=== PATIENT | male | born 1975 | race Caucasian/White ===

== ENCOUNTER 2016-09-20 11:02 | Inpatient (IN) | payer MEDICARE, MEDICAID ==
[~2016-09-20] VITALS: Ht 188 cm; Wt 126.3 kg
--- NOTE | ~2016-09-20 | CON ---
PATIENT'S NAME: MARIBELL RONQUILLO [facility] AGE: 41 Y [address] ROOM: [place] [address] LOCATION: GPCU ADMIT DATE: 09/21/2016 Consultation DISCHARGE DATE: 09/23/2016 FAMILY PHYSICIAN: Amrit Dawn MD ATTENDING PHYSICIAN: YSABEL PALACIOS Corrected DOS per dicating physician 10/15/16 AO DATE OF CONSULTATION: 09/20/2016 REFERRING PHYSICIAN: KELLEY PERES This is a [facility] Nephrology Consultation. REASON FOR CONSULTATION: End-stage renal disease, on peritoneal dialysis. HISTORY OF PRESENT ILLNESS: This is a 41-year-old male patient, who is well known to Dr. Ivory in Nephrology, who has a longstanding history of end-stage renal disease secondary to diabetic nephropathy. The patient does have type 1 diabetes and is on subcutaneous insulin at home. The patient reports that he became nauseated and complained of some dry cough. He reportedly forgot his a.m. dose of insulin and went into DKA. He reports having poor appetite over the past few days. Other than this, he continues his peritoneal dialysis with no complications. He was recently transitioned from hemodialysis in August 2016 to peritoneal dialysis. Therefore, due to his history of peritoneal dialysis, Nephrology has been asked to consult on the patient. PAST MEDICAL HISTORY: As listed above, including; 1. Type 1 diabetes, on subcutaneous insulin at home. 2. End-stage renal disease, on peritoneal dialysis. 3. Hypertension. 4. Hypothyroidism. 5. Hyperphosphatemia. 6. Metabolic acidosis. 7. History of medication noncompliance. PAST SURGICAL HISTORY: Includes; 1. PD catheter placement. 2. Left hip surgery. 3. Pelvic surgery. 4. Back surgery. PATIENT'S NAME: MARIBELL RONQUILLO [facility] AGE: 41 Y [address] ROOM: [place] [address] LOCATION: GPCU ADMIT DATE: 09/21/2016 Consultation DISCHARGE DATE: 09/23/2016 FAMILY PHYSICIAN: Amrit Dawn MD ATTENDING PHYSICIAN: YSABEL PALACIOS ALLERGIES: LASIX. HOME MEDICATIONS: Include; 1. Amlodipine 5 mg p.o. daily. 2. Bumex 2 mg p.o. daily. 3. Calcium carbonate 1500 mg p.o. 3 times a day. 4. Coreg 25 mg p.o. twice a day. 5. Insulin NPH regular insulin 70/30, 22 units subcu twice a day. 6. Regular insulin 3 times a day, on sliding scale. 7. Levothyroxine 125 mcg daily. 8. Lisinopril 20 mg p.o. b.i.d. 9. Renvela 2400 mg p.o. 3 times a day. 10. Sodium bicarbonate 650 mg p.o. 3 times a day. SOCIAL HISTORY: The patient denies any alcohol, cigarette, or illegal drug use. He does live at home with his . FAMILY HISTORY: Significant for his father having diabetes. His mother had some mental illness, however, details are not clear. PHYSICAL EXAMINATION: VITAL SIGNS: Blood pressure is 163/77, heart rate 83, respirations 18, temperature is 98.4, and saturations on 96% on 2 L nasal cannula. GENERAL: On exam; this is an alert, oriented, white male, who appears his approximate stated age. He is in no acute distress. HEENT: His head is normocephalic and atraumatic. Eyes: Pupils are equal, round, and reactive to light and accommodation. EOMs are intact. Nose: Midline. Mouth: No gingival bleeding. Oral mucosa is moist and pink. NECK: No JVD. CARDIOVASCULAR: Regular rate and rhythm with no appreciable murmurs, rubs, or thrills. ABDOMEN: Soft, nontender, and nondistended. Bowel sounds are positive. He does have a peritoneal dialysis catheter placed with no inflammation or redness around the stoma. No drainage noted. EXTREMITIES: Show no signs of peripheral edema, clubbing, or cyanosis. NEUROLOGIC: Cranial nerves II through XII are grossly intact. LABORATORY DATA: Hemoglobin 11.5, hematocrit 34.1, WBC 7.0, and platelets are 214. Sodium is 132, potassium 4.7, chloride is 95, CO2 is 19, BUN is 85, creatinine 9.7, and glucose is 285. INR is 1.0, amylase is 29, troponin is less than 0.04, CK PATIENT'S NAME: MARIBELL RONQUILLO [facility] AGE: 41 Y [address] ROOM: [id number] [place], [place] [address] LOCATION: GPCU ADMIT DATE: 09/21/2016 Consultation DISCHARGE DATE: 09/23/2016 FAMILY PHYSICIAN: Amrit Dawn MD ATTENDING PHYSICIAN: YSABEL PALACIOS 122, calcium 7.4. Blood cultures are pending x2. PD fluid cell counts are currently pending. CTA shows; 1. No PE. 2. No pneumonia. 3. Small pleural effusions and a large amount of ascites. 4. Mild anasarca. ASSESSMENT AND PLAN: 1. End-stage renal disease, on peritoneal dialysis. We will obtain the patient's outpatient clinical record and provide peritoneal dialysis accordingly. At this time, Dr. Ivory has recommended the patient be on 1.5% dextrose bags for his regimen. We will monitor his ultrafiltration in the morning. 2. Diabetic ketoacidosis. Per hospitalist. 3. History of hyperphosphatemia. The patient is currently on Renvela. 4. History of metabolic acidosis. The patient is to continue sodium bicarbonate at this time. 5. History of renovascular hypertension. The patient's blood pressures are elevated currently. He is to continue his Prinivil as well as Norvasc at this time. He is to continue his Coreg. We will monitor closely and make further recommendations with the results of his ultrafiltration overnight. 6. History of peripheral edema. Despite the patient's end-stage renal disease diagnosis, he does to continue to make urine. He is to continue his Bumex 2 mg p.o. daily. This patient has been seen and assessed by Dr. Ivory. His care is being conducted in consultation with Dr. Ivory as well as me. We will plan further recommendations as they are forthcoming. BRYCE MENEZES DNP, TUBE WORKER FOR M RAMOS IVORY MD ENS/modl /[id number] Corrected DOS per dicating physician 10/15/16 AO d: 09/21/16 2341 t: 10/20/16 0902, CONSULTATION REPORT
--- NOTE | ~2016-09-20 | DS ---
PATIENT'S NAME: MARIBELL RONQUILLO [facility] AGE: 41 Y [address] ROOM: [id number] [place], [place] [address] LOCATION: GPCU ADMIT DATE: 09/21/2016 Discharge Summary DISCHARGE DATE: 09/23/2016 FAMILY PHYSICIAN: Amrit Dawn MD ATTENDING PHYSICIAN: Santhosh Mendosa PRIMARY DIAGNOSES: 1. Diabetic ketoacidosis without coma. 2. Diabetes type 2 with hyperglycemia. 3. End-stage renal disease, on peritoneal dialysis. 4. Essential hypertension, uncontrolled. 5. Recurrent nausea. PRINCIPAL PROCEDURES: None was done for the patient. LABORATORY DATA: WBC on admission was 7.0, was stable throughout the hospital stay, prior to discharge was H and H on admission were 11.5 and 34.1, prior to discharge were stable at 11.0 and 34.2; platelets were 214, prior to discharge was 205. On admission, creatinine was 10.9, prior to discharge was 8.9; sodium was 125 on admission, prior to discharge was 135; BUN on admission was 104, prior to discharge was 88; glucose on admission on chemistry was 753, prior to discharge was 205; CO2 on admission was 16, prior to discharge was 20; potassium on admission was 5.4, prior to discharge was 4.6. Liver function test was within normal limits. MICROBIOLOGY DATA: Blood culture x2 sets was no growth. RADIOLOGY DATA: Chest x-ray, stable chest, no new acute findings. CTA per PE protocol, no PE, no pneumonia. Small pleural effusion and a large amount of ascites, mild anasarca. HOSPITAL COURSE: For history of present illness, please take a look at the H and P, which was done by Dr. Mendosa. The patient was admitted to the PCU, was managed as a case of diabetic ketoacidosis without coma. He was started on insulin drip as per the protocol, and eventually, the patient was successfully weaned off the insulin drip with episodes of hypoglycemia. He was subsequently restarted on his home dose of mixed insulin; however, his blood sugar did bounce around a little bit from being hypoglycemic into 400s. The patient was basically most times during his hospital stay noncompliant with his care, sometimes not compliant with checking his Accu-Cheks, sometimes noncompliant also with his diet. He requested for an increase in the amount of calorie, which is allowed to take, which resulted in his blood sugar going into the 400. During his hospital stay, he did also complain of some nausea, which was not well controlled with Zofran, however, did get some improvement with Reglan. Also during his stay, Renal consult was called. The patient was PATIENT'S NAME: MARIBELL RONQUILLO [facility] AGE: 41 Y [address] ROOM: [place] [address] LOCATION: GPCU ADMIT DATE: 09/21/2016 Discharge Summary DISCHARGE DATE: 09/23/2016 FAMILY PHYSICIAN: Amrit Dawn MD ATTENDING PHYSICIAN: Santhosh Mendosa continued on his peritoneal dialysis as well and most of the time during his stay was a difficult patient to take care of as he was not really very cooperative with the nursing team with his care. A day prior to his discharge, he refused his telemonitoring leads to be put on, and his blood pressure during his hospital stay was very difficult to control. We did have to increase his Norvasc from 5 mg daily to 10 mg daily without much improvement in blood pressure. He did receive also Bumex IV, which is also bumped up from 2 mg daily to 2 mg IV twice daily. He was ultimately sent home on Bumex 2 mg twice daily without much improvement in his blood pressure control. On the morning of his discharge, he did complain of some more nausea, which was improved with Reglan, and we recommended for the patient that we needed to do a gastric emptying test done to evaluate him for a gastroparesis as his symptom of nausea has been ongoing for a while without anything in our records indicating he has been worked up for gastroparesis in the past. On the day of discharge, his vital signs were stable. His nausea had resolved, and the patient was discharged home. MEDICATIONS ON DISCHARGE: 1. Bumetanide 2 mg p.o. twice daily, dose changed. 2. Calcium carbonate 1500 mg p.o. 3 times daily. 3. Coreg 25 mg p.o. twice daily. 4. Norvasc 10 mg p.o. daily, dose changed. 5. Synthroid 125 mcg p.o. daily before breakfast. 6. Humulin 70/30. 7. Lisinopril 20 mg p.o. twice daily. 8. Renvela 2400 mg p.o. 3 times daily. 9. Sodium bicarb 650 mg p.o. 3 times daily. 10. Zofran 4 mg q.6 hours p.o. p.r.n., new medication. DISCHARGE INSTRUCTIONS: The patient is to have a gastric emptying test done, has been scheduled for tomorrow, September 24, 2016. MD HELLEN HUITRON/maryl /[id number] d: 09/24/16 0304 t: 09/26/16 1415, DISCHARGE SUMMARY
--- NOTE | ~2016-09-20 | ER ---
PATIENT'S NAME: MARIBELL RONQUILLO [facility] AGE: 41 Y [address] ROOM: [place] [address] LOCATION: GPCU ADMIT DATE: 09/20/2016 ER/Outpatient Report DISCHARGE DATE: FAMILY PHYSICIAN: Amrit Dawn MD ATTENDING PHYSICIAN: BASIM MCKEON Time of Arrival: 1102 hours. Time of Evaluation: 1108 hours. CHIEF COMPLAINT: Chest pain. HISTORY OF PRESENT ILLNESS: The patient is a 41-year-old male who presents to the emergency department today with a chief complaint of chest pain. He reports it started earlier this morning. He does have some shortness of breath with it as well. He does have some nausea and just feels achy all over. He denies any diarrhea or constipation. Denies any fevers. The pain is currently 6/10 in severity. It is a pressure. PAST MEDICAL HISTORY: 1. Chronic kidney disease, on peritoneal dialysis. 2. Insulin-dependent diabetes. 3. Hypertension. PAST SURGICAL HISTORY: Left hip, back, and pelvis. SOCIAL HISTORY: The patient denies any tobacco, alcohol, or illicit drug use. ALLERGIES: NO KNOWN DRUG ALLERGIES. MEDICATIONS: Please see list. PRIMARY CARE DOCTOR: Dr. Kwong. REVIEW OF SYSTEMS: All systems are reviewed by myself and are negative with the exception of those discussed in the HPI and past medical history. PHYSICAL EXAMINATION: VITAL SIGNS: Weight 120.6 kg. Blood pressure 195/88, pulse 86, respiratory rate 18, temperature 98.6, and oxygen saturation 99% on 3 L nasal cannula. PATIENT'S NAME: MARIBELL RONQUILLO [facility] AGE: 41 Y [address] ROOM: [address] [address] LOCATION: GPCU ADMIT DATE: 09/20/2016 ER/Outpatient Report DISCHARGE DATE: FAMILY PHYSICIAN: Amrit Dawn MD ATTENDING PHYSICIAN: BASIM MCKEON GENERAL: The patient is a 41-year-old male, who appears older than stated age in mild acute distress. HEENT: Head; normocephalic and atraumatic. Pupils are equal, round, and reactive to light. Oropharynx is mildly dry. NECK: Supple. There is no nuchal rigidity. CARDIOVASCULAR: Regular rate and rhythm. No murmurs, rubs, or gallops. LUNGS: Clear to auscultation bilaterally. ABDOMEN: Soft. Mild diffuse tenderness to palpation. There is no rebound, rigidity, or guarding. Positive bowel sounds. MUSCULOSKELETAL: The patient moves all 4 extremities. SKIN: Warm and dry. LABORATORY DATA AND IMAGING STUDIES: Laboratories and X-rays are obtained. EKG is obtained, is interpreted by myself, and showed sinus rhythm with a rate of 85, left axis deviation, normal interval. No ST elevation or ST depression. No T-wave inversions. Lactate is normal. CBC is normal except for a hemoglobin of 11.5, hematocrit of 34.1. Influenza is negative. Coags are negative. D-dimer is 1.82. Procalcitonin is 0.65. CMP is normal except for a sodium of 125, potassium 5.4, chloride 87, CO2 is 16, BUN 104, creatinine is 10.9, and glucose 753. LFTs are normal. BNP is 22,099. Magnesium is normal. CK is normal. CK-MB is 4.2, troponin is less than 0.04. Venous blood gas; 7.27/41/74/18.8/negative 7.7. Repeat EKG shows sinus rhythm with a rate of 83, normal axis, and normal interval. No ST elevation or ST depression, or T-wave inversions. A CT scan of the chest, PE study was obtained. I have discussed the results with the radiologist, shows no evidence of PE. There were small pleural effusions, no evidence of pneumonia. IMPRESSION: 1. Diabetic ketoacidosis. 2. Fluid overload, on chronic peritoneal dialysis. 3. Poorly controlled hypertension. 4. Critical care time 33 minutes. 5. Initial visit. EMERGENCY DEPARTMENT COURSE: The patient was brought back to the examination room. Seen and evaluated by myself. IV is established. Laboratory analysis and imaging are obtained as described above. The patient's laboratory analysis is returned. The patient is given a liter of normal saline and then started on normal saline at 250 mL per hour. The patient is given 50 mcg of fentanyl for pain. He is given aspirin orally. He is also given 10 units of insulin subcutaneous and started on insulin drip at 3 units per hour. The patient's blood sugars are repeated multiple times here in the emergency department. He continues to read high. I have discussed the case with Dr. Mckeon, who is on-call for the Hospitalist PATIENT'S NAME: MARIBELL RONQUILLO [facility] AGE: 41 Y [address] ROOM: [id number] [place], [place] [address] LOCATION: [facility] ADMIT DATE: 09/20/2016 ER/Outpatient Report DISCHARGE DATE: FAMILY PHYSICIAN: Amrit Dawn MD ATTENDING PHYSICIAN: BASIM MCKEON Service. He does agree to accept the patient for further evaluation, treatment, and management. I have discussed the results with the patient. He is agreeable with the plan. The patient did require cumulative critical care time of 33 minutes, this did include discussion with the patient, talking with the consultants, ordering tests, reviewing tests, as well as close monitoring. The patient in diabetic ketoacidosis, requiring close fluid management and insulin drip. DISPOSITION: The patient is admitted under the care of the Hospitalist Service with Dr. Mckeon in stable condition. DO JAGDISH SETHI/maryl /[id number] d: 09/20/161951 t: 09/22/161720, OUTPATIENT REPORT
--- NOTE | ~2016-09-20 | CON ---
PATIENT'S NAME: MARIBELL RONQUILLO [facility] AGE: 41 Y [address] ROOM: [place] [address] LOCATION: GPCU ADMIT DATE: 09/20/2016 Consultation DISCHARGE DATE: FAMILY PHYSICIAN: Amrit Dawn MD ATTENDING PHYSICIAN: BASIM MCKEON DATE OF CONSULTATION: 09/21/2016 REFERRING PHYSICIAN: Dr. Mckeon. REASON FOR VISIT: Wound Care visit to evaluate and treat lower leg venous stasis dermatitis. HISTORY OF PRESENT ILLNESS: This is a 41-year-old male patient who was admitted to [facility] with diabetic ketoacidosis. He has a history of type 1 diabetes mellitus, hypertension, hypothyroidism, pulmonary embolism, and end-stage renal disease. The patient reports a poor appetite prior to admission. He also mentions forgetting to take his insulin. The patient has a history of pressure ulcers and venous stasis ulcers. He normally wears Jobst compression stockings at home. He reports a good oral intake since he has been admitted to the hospital. He is denying pain. Per the [facility] nurses, he has a tendency to refuse pressure redistribution measures. He denies chest pain. He denies unexplained weight loss. Per H and P, he was noted to have a wound to his left anterior gunn. The patient denies purulent exudate and has been treating it with a gauze bandage at home. He is not sure how long he has had the ulcer. PAST MEDICAL HISTORY: 1. Type 1 diabetes mellitus. 2. End-stage renal disease, on peritoneal dialysis. 3. Essential hypertension. 4. Hypothyroidism. 5. Pulmonary embolism. PAST SURGICAL HISTORY: I and D of left hip, lower back fusion, hardware removal to spine, left hip replacement, fistula placement, and port placement. FAMILY HISTORY: Reviewed and found to be noncontributory to present illness. SOCIAL HISTORY: The patient lives in [place], [place] with his . He denies tobacco or illicit drug use. PATIENT'S NAME: MARIBELL RONQUILLO [facility] AGE: 41 Y [address] ROOM: [place] [address] LOCATION: GPCU ADMIT DATE: 09/20/2016 Consultation DISCHARGE DATE: FAMILY PHYSICIAN: Amrit Dawn MD ATTENDING PHYSICIAN: BASIM MCKEON ALLERGIES: FUROSEMIDE. CURRENT MEDICATIONS: Please refer to the medication administration record. REVIEW OF SYSTEMS: A 10-point review of systems was completed to the best of my ability and all negative except as mentioned above in the HPI. PHYSICAL EXAMINATION: VITAL SIGNS: Temperature 98.4, pulse 83, respirations 18, blood pressure 160/77, and pulse oximetry 98% on 2 L. Height 6 feet 2 inches and weight 122 kg. GENERAL: The patient is alert and orientated x3. Slightly irritable. Appears to minimize his current health situation. HEENT: Head: Normocephalic, atraumatic. Anicteric sclerae. Oral mucosa intact. NECK: Supple. No JVD noted. CARDIOVASCULAR: Regular rate and rhythm. ABDOMEN: Round. No organomegaly from what I can tell. EXTREMITIES. +1 pedal pulses. +1 lower leg edema. Extremities are warm to touch. Long, thick mycotic toenails. SKIN: The patient refused to turn in bed for visualization of his buttocks. He reports no ulcers to the site. To his lower extremities, he has obvious venous stasis changes with hemosiderin staining. He has dry skin flakes noted. No open ulcers noted. Heels intact. LABORATORY DATA: White blood cell count 6.7, hemoglobin 11.9, hematocrit 37.7, platelets 236. Lactate 2.7. Sodium 132, potassium 4.7, chloride 95, bicarb 19, BUN 85, creatinine 9.7, and glucose 285. ASSESSMENT AND PLAN: Again, this is a 41-year-old male patient who was admitted to [facility] with diabetic ketoacidosis. Wound Care was consulted to evaluate and assess lower leg venous stasis dermatitis. 1. Bilateral lower leg venous stasis dermatitis: The patient currently has no open ulcers noted. He noted he had an ulcer open in the past, but was very superficial. It appears that it has closed. I will have nursing apply Aloe [place] b.i.d. to legs. The patient has his compression stockings and I instructed nursing to put them on in the morning and off at bedtime. The patient was instructed to elevate his legs as much as possible throughout the day. 2. Pressure ulcer prevention: Discussed pressure redistribution measures PATIENT'S NAME: MARIBELL RONQUILLO [facility] AGE: 41 Y [address] ROOM: [address] [address] [facility] ADMIT DATE: 09/20/2016 Consultation DISCHARGE DATE: FAMILY PHYSICIAN: Amrit Dawn MD ATTENDING PHYSICIAN: BASIM MCKEON with the patient and instructed him to turn in bed every q.2 hours. Despite my best efforts, he was not willing to turn in bed for visualization of his buttocks. I instructed nursing to be aware and encourage the patient as much as possible so he does not develop a pressure ulcer while here in the hospital. I would like to thank Dr. Mckeon for this consultation. JADEN MARTINEZ APRN FOR MD TAYLOR ALEXIS/maryl /[id number] d: 09/21/16 2331 t: 09/27/16 1303, CONSULTATION REPORT
--- NOTE | ~2016-09-20 | HP ---
PATIENT'S NAME: MARIBELL RONQUILLO [facility] AGE: 41 Y [address] ROOM: [id number] [place] [id number] LOCATION: GPCU ADMIT DATE: 09/20/2016 History & Physical DISCHARGE DATE: FAMILY PHYSICIAN: Amrit Dawn MD ATTENDING PHYSICIAN: BASIM MCKEON DATE OF SERVICE: CHIEF COMPLAINT: DKA. HISTORY OF PRESENT ILLNESS: This is a 41-year-old male who has type 1 diabetes, on home subcutaneous insulin, who says that this morning he forgot to use his home insulin dose and went into DKA. He states that this is the first time he forgot to use the insulin this morning. He also complains of some dry cough and nausea and some chest pain, nonspecific, sometimes on exertion, sometimes at rest, about 5/10 intensity, stabbing sensation which is constant. He also has been having poor appetite for the last 4 days. Other than that, he has no other complaints. No abdominal pain. He is on peritoneal dialysis, he uses dialysis 4 times a day at home, and he denies any pain in the abdomen. He said he has some chronic lower extremity wound in the left anterior gunn, but he said it does not look infected, currently it is covered by dressing. He does not want me to look at the wound because it is already covered by the dressing. He did tell me that it does not look infected, it is very superficial and there is no drainage and there is no pus. No fever, no chills, no recent sick contact. REVIEW OF SYSTEMS: As mentioned in the history of present illness. All other systems reviewed and negative except those mentioned in the history of present illness. PAST MEDICAL HISTORY: 1. Type 1 diabetes, diagnosed many years ago, on subcutaneous insulin at home, not on insulin pump. 2. End-stage renal disease, on peritoneal dialysis 4 times a day. 3. Hypertension. 4. Hypothyroidism. ALLERGIES: LASIX (SWELL UP WITH FLUID). HOME MEDICATIONS: 1. Amlodipine 5 mg p.o. daily. 2. Bumex 2 mg p.o. daily. 3. Calcium carbonate 1500 mg p.o. t.i.d. 4. Coreg 25 mg p.o. b.i.d. PATIENT'S NAME: MARIBELL RONQUILLO [facility] AGE: 41 Y [address] ROOM: [id number] [place], [place] [address] LOCATION: GPCU ADMIT DATE: 09/20/2016 History & Physical DISCHARGE DATE: FAMILY PHYSICIAN: Amrit Dawn MD ATTENDING PHYSICIAN: BASIM MCKEON 5. Insulin NPH/regular insulin 70/30 22 units subcu twice daily. 6. Insulin regular subcu 3 times daily insulin sliding scale. 7. Levothyroxine 125 mcg p.o. daily. 8. Lisinopril 20 mg p.o. b.i.d. 9. Renvela 2400 mg p.o. t.i.d. 10. Sodium bicarbonate 650 mg p.o. t.i.d. SOCIAL HISTORY: He denies any cigarette, alcohol, or illegal drug use FAMILY HISTORY: Father also has diabetes. Mother has some mental illness, but details not clear. PAST SURGICAL HISTORY: 1. Left hip surgery in the past. 2. Pelvic surgery in the past. 3. Back surgery in the past. PHYSICAL EXAMINATION: VITAL SIGNS: At the time of my dictation, blood pressure 120/90, heart rate 80, temperature 98, respirations 14, and saturation 100% on 1 L nasal cannula. GENERAL APPEARANCE: Alert and oriented x3, in no acute distress. HEENT: Pupils equally round and reactive to light. Extraocular muscles intact. Anicteric sclerae. Nasal turbinates are normal bilaterally. Moist oral mucosa. No oral thrush. NECK: No JVD. CARDIOVASCULAR: Regular rate and rhythm. Normal S1, S2. No murmur. No rubs, no gallops. RESPIRATORY: Clear. ABDOMEN: Obese, soft, and nontender. No hepatosplenomegaly. Distended. Ascites. He is on peritoneal dialysis at home. EXTREMITIES: No edema in the upper or lower extremities. He has left anterior callus, covered by dressing, I cannot see the wound. He says it is not infected. He says it is very superficial, there is no pus, and no active drainage according to the patient. The patient does not let me open the dressing wound, he says he just put the dressing on. SKIN: Cannot assess the left anterior gunn. NEUROLOGIC: Grossly nonfocal. LABORATORY DATA: ABG showed pH 7.27, PCO2 41, PO2 74, bicarbonate 18.8. Lactic acid 1.3. CPK 122, troponin less than 0.04. ProBNP 87106. White blood cells 7.0, hemoglobin 11.5, hematocrit 34.1, MCV 98.5, platelets 214. Glucose of 753, BUN 104, creatinine 10.9, sodium 125, potassium 5.4, chloride 87, and CO2 16. PATIENT'S NAME: MARIBELL RONQUILLO [facility] AGE: 41 Y [address] ROOM: [address] [id number] [facility] AD[facility] DATE: 09/20/2016 History & Physical DISCHARGE DATE: FAMILY PHYSICIAN: Amrit Dawn MD ATTENDING PHYSICIAN: BASIM MCKEON Calcium 7.3, total protein 5.5, albumin 2.5, AST 13, ALT 10, alkaline phosphatase 74, and total bilirubin 0.4. Magnesium 2.1, anion gap 27.4, GFR 5, INR 1.0, PTT 26. Urinalysis negative for UTI. CK-MB 4.4. Influenza antigen screen negative. Procalcitonin 0.65. D-dimer 1.82. IMAGING STUDIES: 1. Chest x-ray on admission shows stable chest x-ray. No acute finding. 2. CT pulmonary angiogram on admission shows no pulmonary emboli. No pneumonia. Small pleural effusion and a large amount of ascites. Mild anasarca. 3. EKG on admission shows sinus rhythm, heart rate of 85 beats per minute, normal [place], normal QRS, normal QTc interval and duration. No acute ischemic finding. ASSESSMENT AND PLAN: 1. Diabetic ketoacidosis. This is most likely from the missed insulin dose in the morning. The patient does not look septic. Blood cultures have been obtained to rule out infection. X-ray, no finding of pneumonia. CT PA, no PE and no pneumonia finding. He has end-stage renal disease, on peritoneal dialysis, but the patient says he still makes some urine and he is doing a peritoneal dialysis. In the setting of DKA, I will hydrate him carefully cautiously with normal saline at 100 mL/h and watch him closely to prevent volume overload. Consult Nephrology for peritoneal dialysis and start him on the insulin drip per DKA protocol. Check fingerstick glucose every hour and a basic metabolic panel every 2 hours and to change IV fluids if necessary depending on the electrolytes. For now, I will not start any antibiotics because there is no obvious finding of infection based on the physical examination and on his symptoms. Will ask Nephrology to get peritoneal fluid to rule out secondary peritonitis. 2. Chest pain. Troponin, CK, CK-MB will be cycled. EKG was nonischemic on admission. Chest pain has already resolved. Keep cycling cardiac enzymes. Telemetry monitoring. 3. Hypothyroidism. Continue home levothyroxine dose. 4. Hypertension. Continue home medications with holding parameters. 5. Diabetes type 1. We will consult healthcare educator in the morning. Once his nausea is controlled and his DKA has resolved, he can start eating. Once the DKA is resolved, I will do overlapping with subcu insulin for 1 hour before before stopping the IV insulin drip. A1c will be checked in the morning as well. Further plan depends on clinical course. 6. Prophylaxis. Heparin subcu 3 times a day 5000 units. 7. Time spent on the day of admission 35 minutes including chart review, interviewing the patient, examining the patient, addressing all the questions and concerns the patient had, and going over the plan of care with the patient. PATIENT'S NAME: MARIBELL RONQUILLO [facility] AGE: 41 Y [address] ROOM: [place] [address] [facility] ADMIT DATE: 09/20/2016 History & Physical DISCHARGE DATE: FAMILY PHYSICIAN: Amrit Dawn MD ATTENDING PHYSICIAN: BASIM MCKEON BASIM MCKEON MD CC/modl /[id number] D: [id number] T: HISTORY & PHYSICAL
[~2016-09-20 11:02] MED LIST: AMBIEN5 MG PO; ANCEF, KEFZOL1 GM IVP; BENGAY/ICY HOT/30 GM TOP; BUMETANIDE2 MG PO; BUMEX1 MG; BUMEX1 MG PO; Bumex PO; CINNAMON PO; CINNAMON500 MG PO; COMPAZINE10 MG PO; COREG25 MG PO; DAILY MULTIPLE1 EAC1 PO; EMLA5 GM TOP; FLORASTOR250 MG PO; HUMULIN 70100 UNIT/1 SUB-Q; HUMULIN 70100 UNIT/M; LEVOTHROID (S125 MCG PO; LEVOTHYROXINE50 MCG PO; LISINOPRIL20 MG; NORCO 5-325 TA1 EACH PO; NORVASC10 MG PO; NORVASC2.5 MG; NORVASC5 MG PO; NOVOLIN 70100 UNIT/1 SUB-Q; NOVOLIN R100 UNIT/1 SUB-Q; PRINIVIL (ZESTR20 MG PO; PRINIVIL OR ZES10 MG PO; PROTONIX40 MG PO; REGLAN5 MG PO; RIFADIN, RIMAC300 MG PO; SINEMET 10/1001 TAB; SODIUM BICARBO650 MG; SODIUM BICARBO650 MG PO; THERA-VITE W/ B1 TAB PO; TUMS REGULAR ST1 TAB PO; TUMS200 MG PO; VITAMIN B COMP1 EACH PO; ZESTRIL2.5 MG; ZOFRAN4 M1 PO; [UNRECOGNIZED DRUG - OTHER] PO
[2016-09-20 11:52] LABS: BASOPHIL % 0.6 %; EOSINOPHIL % 0.6 %; HEMATOCRIT 34.1 % (37.0-53.0); HEMOGLOBIN 11.5 g/dL (12.0-17.0); IMMATURE GRANULOCYTE % 0.3 %; LYMPHOCYTE # 0.9 K/uL (0.8-4.0); LYMPHOCYTE % 12.5 %; MCH 30.5 pg (27.0-34.0); MCHC 33.7 gm/dL (32.0-36.5); MCV 90.5 fl (83.0-98.0); MONOCYTE # 0.3 K/uL (0.0-1.0); MONOCYTE % 3.9 %; MPV 9.1 fl (9.4-12.4); NEUTROPHIL # (ANC) 5.7 K/uL (1.4-9.0); NEUTROPHIL % 82.1 %; NRBC % 0 /100WBC (0-0.00); PLATELET COUNT 214 K/uL (150-450); RBC 3.77 M/uL (4.00-6.00)
[2016-09-20 12:01] LABS: PROTIME 10.7 SECONDS (9.6-11.1); PTT 26 SECONDS (25-32)
[2016-09-20 12:43] LABS: ALBUMIN 2.5 gm/dL (3.5-5.0); ALK PHOS 74 IU/L (33-138); ALT 10 IU/L (12-78); AST 13 IU/L (10-40); CPK 129 IU/L (35-332); MAGNESIUM 2.1 mg/dL (1.3-2.6); POTASSIUM 5.4 mMol/L (3.7-5.1); SODIUM 125 mMol/L (135-145); TOTAL BILIRUBIN 0.4 mg/dL (0.0-1.5); TOTAL PROTEIN 5.5 g/dL (6.0-8.4)
[2016-09-20 12:45] LABS: ANION GAP 27.4 (10.0-19.0); CHLORIDE 87 mMol/L (96-110); CO2 16 mMol/L (22-32)
[2016-09-20 12:46] LABS: BLOOD UREA NITROGEN 104 mg/dL (6-24); CALCIUM 7.3 mg/dL (8.5-10.5); CREATININE 10.9 mg/dL (0.6-1.3); ESTIMATED GFR (MDRD EQUATION) 5
[2016-09-20 13:20] LABS: BICARBONATE 18.8 mmol/L (18.0-23.0); PCO2 41 mmHg (35-45); PO2 74 mmHg (80-90)
[2016-09-20 14:01] LABS: BILIRUBIN URINE NEGATIVE (NEGATIVE); BLOOD URINE 25 /UL (NEGATIVE); COLOR URINE YELLOW (YELLOW); GLUCOSE URINE 1000 mg/dL (NEGATIVE); KETONE URINE 15 mg/dL (NEGATIVE); LEUKOCYTES URINE NEGATIVE /UL (NEGATIVE); NITRITE URINE NEGATIVE (NEGATIVE); PROTEIN URINE 500 mg/dL (NEGATIVE); TURBIDITY URINE CLEAR (CLEAR); UROBILINOGEN URINE NORMAL (NORMAL)
[2016-09-20 14:14] LABS: BACTERIA URINE NEGATIVE (NEGATIVE); WBC URINE 0-2 #/HPF (NEGATIVE)
[2016-09-20 14:15] LABS: EPITHELIAL URINE RARE #/HPF (NEGATIVE)
[2016-09-20 14:26] LABS: CPK 122 IU/L (35-332)
[2016-09-20] MEDS ORDERED: RENVELA800 MG PO (15:59)
[2016-09-20 17:39] LABS: CALCIUM 7.5 mg/dL (8.5-10.5)
[2016-09-20 21:08] LABS: % PERITONEAL FLUID MESO 3 % (0-0); % PERITONEAL FLUID MONO/MACRO 81 % (0-0); % PERITONEAL FLUID NEUT 0 % (0-25)
[2016-09-20 21:25] LABS: PERITONEAL FLUID TURBIDITY 1+ (CLEAR)
[2016-09-21 07:12] LABS: HEMATOCRIT 34.7 % (37.0-53.0); HEMOGLOBIN 11.9 g/dL (12.0-17.0); MCH 30.5 pg (27.0-34.0); MCHC 34.3 gm/dL (32.0-36.5); MPV 8.8 fl (9.4-12.4); RBC 3.9 M/uL (4.00-6.00); WBC 6.7 K/uL (4.0-11.0)
[2016-09-21 07:29] LABS: ALBUMIN 2.5 gm/dL (3.5-5.0); ANION GAP 21.2 (10.0-19.0); CALCIUM 7.6 mg/dL (8.5-10.5); PHOSPHORUS 7.2 mg/dL (2.5-4.9); POTASSIUM 4.2 mMol/L (3.7-5.1)
[2016-09-21 07:35] LABS: CREATININE 9.7 mg/dL (0.6-1.3)
[2016-09-21 13:13] LABS: ANION GAP 22.7 (10.0-19.0); POTASSIUM 4.7 mMol/L (3.7-5.1)
[2016-09-21 13:15] LABS: CALCIUM 7.4 mg/dL (8.5-10.5); CREATININE 9.7 mg/dL (0.6-1.3)
[2016-09-21 17:15] LABS: ANION GAP 21.9 (10.0-19.0); POTASSIUM 4.9 mMol/L (3.7-5.1)
[2016-09-21 17:20] LABS: CALCIUM 7.3 mg/dL (8.5-10.5); CREATININE 9.8 mg/dL (0.6-1.3)
[2016-09-22 00:45] LABS: CALCIUM 7.6 mg/dL (8.5-10.5)
[2016-09-22 00:46] LABS: ANION GAP 18.9 (10.0-19.0); CREATININE 9.4 mg/dL (0.6-1.3); POTASSIUM 3.9 mMol/L (3.7-5.1)
[2016-09-22 10:31] LABS: BASOPHIL % 0.7 %; EOSINOPHIL # 0.2 K/uL (0.0-0.5); EOSINOPHIL % 3.2 %; HEMATOCRIT 34.2 % (37.0-53.0); HEMOGLOBIN 11.6 g/dL (12.0-17.0); IMMATURE GRANULOCYTE % 0.7 %; LYMPHOCYTE # 1.5 K/uL (0.8-4.0); LYMPHOCYTE % 26.6 %; MCH 30.9 pg (27.0-34.0); MCHC 33.9 gm/dL (32.0-36.5); MCV 91.2 fl (83.0-98.0); MONOCYTE # 0.5 K/uL (0.0-1.0); MONOCYTE % 9.2 %; NEUTROPHIL # (ANC) 3.4 K/uL (1.4-9.0); NEUTROPHIL % 59.6 %; NRBC % 0 /100WBC (0-0.00); PLATELET COUNT 205 K/uL (150-450); RBC 3.75 M/uL (4.00-6.00); RDW-CV 14.2 % (11.9-14.6); WBC 5.6 K/uL (4.0-11.0)
[2016-09-22 10:43] LABS: ANION GAP 20.4 (10.0-19.0); CALCIUM 7.5 mg/dL (8.5-10.5); POTASSIUM 4.4 mMol/L (3.7-5.1)
[2016-09-23 04:31] LABS: ANION GAP 21.6 (10.0-19.0); POTASSIUM 4.6 mMol/L (3.7-5.1)
[2016-09-23 04:35] LABS: CALCIUM 7.2 mg/dL (8.5-10.5); CREATININE 8.9 mg/dL (0.6-1.3)
[2016-09-23] MEDS ORDERED: ZOFRAN4 MG PO (10:53)
[2016-09-23] MEDS ORDERED: REGLAN10 MG PO (13:27)
[2016-12-07] MEDS ORDERED: PHOSLO667 MG PO (15:18)
== END 2016-09-23 15:45 | disposition disaster alternative care site (69) | DRG 637 ==
LOC: GMED 11:02 → GPCU 14:11
PROVIDERS: Emergency Medicine; Hospitalist; Internal Medicine; Internal Medicine Nephrology; ADMIT Internal Medicine
PROC: 3E1M39Z Irrigation of Peritoneal Cavity using Dialysate, Percutaneous Approach (ICD-10-PCS; principal; 2016-09-21)
DX: E10.10 Type 1 diabetes mellitus with ketoacidosis without coma (principal); N18.6 End stage renal disease; J96.01 Acute respiratory failure with hypoxia; D03.9 Melanoma in situ, unspecified; Z99.2 Dependence on renal dialysis; E10.22 Type 1 diabetes mellitus with diabetic chronic kidney disease; R07.9 Chest pain, unspecified; I87.2 Venous insufficiency (chronic) (peripheral); I10 Essential (primary) hypertension; E83.39 Other disorders of phosphorus metabolism; Z91.14 Patient's other noncompliance with medication regimen
CPT/HCPCS: G0378; J0360; J2405; J2765; J7030; J7040; J7121; Q0162; Q9967

== ENCOUNTER → 2016-12-09 | Outpatient (CLI) | payer MEDICARE, MEDICAID ==
[~2016-12-09] MED LIST changes: +PHOSLO667 MG PO; +REGLAN10 MG PO; +RENVELA800 MG PO; +ZOFRAN4 MG PO
[2016-12-09 15:19] LABS: INR - (THERAPEUTIC) 1.02 (0.92-1.07); PROTIME 10.7 SECONDS (9.8-11.4)
== END | disposition disaster alternative care site (69) ==
LOC: LGSMG 15:10
PROVIDERS: Internal Medicine Nephrology
DX: N18.4 Chronic kidney disease, stage 4 (severe) (principal); D63.1 Anemia in chronic kidney disease

== ENCOUNTER → 2016-12-10 | Outpatient (CLI) | payer MEDICARE, MEDICAID | END | disposition disaster alternative care site (69) | LOC: GRAD 11-25 09:00 → GPOC 12-07 15:00 → GRAD 09:00 → GPOC 14:55 → GRAD 14:55 → GPOC 15:00 → GRAD 16:30 | DX: Z45.2 Encounter for adjustment and management of vascular access device (principal); N18.6 End stage renal disease; Z99.2 Dependence on renal dialysis | CPT/HCPCS: J2250; J3010; J7030 ==